=== PATIENT | male | born 1945 | race Hispanic/Latino ===

== ENCOUNTER 2018-03-15 16:53 | Inpatient (IN) | payer MEDICARE ==
[2018-03-15] MEDS ORDERED: Sodium Chloride 0.9% 1,000 ML IV STA (17:21)
--- NOTE | 2018-03-15 17:24 | ED PDOC ---
Arrival/HPI - General Chief Complaint: GI Problem Time Seen by Provider: 03/15/18 16:56 Historian: Patient - History of Present Illness Narrative History of Present Illness (Text): 03/15/18 17:21 72 y/o male, whose PMH includes asthma, hypothyroidism, diabetes, GERD, and diverticulitis, who presents to the emergency department complaining of abdominal pain that started last night. Patient reports he has been having abdominal pain episodes for the past 8 months and they recently diagnosed him with diverticulits. Patient reports his symptom is associated with nausea and vomiting. Patient denies diarrhea, chest pain, shortness of breath, fever, or other complaints. Time/Duration: 24 hours Symptom Onset: Sudden Symptom Course: Unchanged Past Medical History - Provider Review Nursing Documentation Reviewed: Yes - Infectious Disease Hx of Infectious Diseases: None - Pulmonary Hx Asthma: Yes - Endocrine/Metabolic Hx Diabetes Mellitus Type 2: Yes Hx Hypothyroidism: Yes - Gastrointestinal Hx Diverticulitis: Yes Hx Gastroesophageal Reflux: Yes - Genitourinary/Gynecological Hx Prostate Cancer: Yes Hx Prostate Problems: Yes - Psychiatric Hx Substance Use: No - Surgical History Other/Comment: intestinal sx (removed 10 inches). abdominal sx. bowel resection - Anesthesia Hx Anesthesia: Yes Hx Anesthesia Reactions: No Hx Malignant Hyperthermia: No Family/Social History - Physician Review Nursing Documentation Reviewed: Yes Family/Social History: Unknown Family HX Smoking Status: Never Smoked Hx Alcohol Use: No Hx Substance Use: No Allergies/Home Meds Allergies/Adverse Reactions: Allergies Sulfa (Sulfonamide Antibiotics) Allergy (Verified 03/15/18 17:04) RASH Home Medications: Home Meds Medication Instructions Recorded Confirmed Albuterol HFA [Ventolin HFA 90 2 puff IH QID PRN 03/15/18 03/15/18 mcg/actuation (8 g)] Celecoxib [Celebrex] 1 cap PO DAILY 03/15/18 03/15/18 DULoxetine [Cymbalta] 1 tab PO DAILY 03/15/18 03/15/18 Finasteride [Proscar] 1 tab PO DAILY 03/15/18 03/15/18 Gabapentin [Neurontin] 3 cap PO BID 03/15/18 03/15/18 Glimepiride [amaRYL] 1 tab PO DAILY 03/15/18 03/15/18 Hyoscyamine Sulfate [Symax] 1 tab SL Q4H PRN 03/15/18 03/15/18 Levothyroxine [Synthroid] 1 tab PO DAILY 03/15/18 03/15/18 Montelukast [Singulair] 1 tab PO DAILY 03/15/18 03/15/18 Pantoprazole [Protonix EC Tab] 1 tab PO DAILY 03/15/18 03/15/18 Pregabalin [Lyrica] 1 cap PO BID 03/15/18 03/15/18 Quinapril HCl [Quinapril HCl] 1 tab PO HS 03/15/18 03/15/18 SITagliptin [Januvia] 1 tab PO DAILY 03/15/18 03/15/18 traZODone [Desyrel] 1 tab PO DAILY 03/15/18 03/15/18 Review of Systems - Review of Systems Constitutional: absent: Fevers Respiratory: absent: SOB Cardiovascular: absent: Chest Pain Gastrointestinal: Abdominal Pain, Nausea, Vomiting. absent: Constipation, Diarrhea Genitourinary Male: absent: Dysuria Musculoskeletal: absent: Back Pain Neurological: absent: Headache, Dizziness Endocrine: absent: Diaphoresis Physical Exam Vital Signs Reviewed: Yes Vital Signs Temp Pulse Resp BP Pulse Ox 03/15/18 20:10 68 18 117/70 100 03/15/18 17:04 97.9 F 69 18 179/94 H 100 03/15/18 17:02 97.9 F 69 18 179/94 H 100 Temperature: Afebrile Blood Pressure: Hypertensive Pulse: Regular Respiratory Rate: Normal Appearance: Positive for: Well-Appearing, Non-Toxic, Comfortable Pain Distress: None Mental Status: Positive for: Alert and Oriented X 3 - Systems Exam Head: Present: Atraumatic, Normocephalic Pupils: Present: PERRL Extroacular Muscles: Present: EOMI Conjunctiva: Present: Normal Respiratory/Chest: Present: Clear to Auscultation, Good Air Exchange. No: Respiratory Distress, Accessory Muscle Use, Wheezes, Decreased Breath Sounds, Rales, Retracting, Rhonchi Cardiovascular: Present: Regular Rate and Rhythm, Normal S1, S2. No: Murmurs Abdomen: Present: Tenderness (non-focal), Normal Bowel Sounds. No: Distention, Peritoneal Signs, Rebound, Guarding Neurological: Present: GCS=15, CN II-XII Intact, Speech Normal Skin: Present: Warm, Dry, Normal Color. No: Rashes Psychiatric: Present: Alert, Oriented x 3, Normal Insight, Normal Concentration Medical Decision Making ED Course and Treatment: 03/15/18 17:25 Impression: 72 y/o male with non-focal tenderness complaining of abdominal pain associated with nausea and vomiting. Plan: -- EKG -- CT abdomen and pelvis -- Labs -- Urinalysis -- Zofran and Sodium Chloride -- Reassess and disposition Prior Visits: Notes and results from previous visits were reviewed. Progress Notes: 03/15/18 19:48 EKG: Ordered, reviewed, and independently interpreted the EKG. Rate : 73 BPM Rhythm : NSR Interpretation : No ST-segment elevations or depressions, no T-wave inversions, normal intervals. Comparison : No previous EKG for comparison. 03/15/18 20:22 CT abdomen and pelvis: FINDINGS: Lung bases: Unremarkable. No mass. No consolidation. Mediastinum: Small hiatal hernia. ABDOMEN: Liver: Slightly heterogenous. Gallbladder and bile ducts: Pneumobilia. Status post cholecystectomy. No ductal dilation. Pancreas: The distal pancreatic duct is questionably slightly dilated. Pancreas evaluation is limited. Spleen: Unremarkable. No splenomegaly. Adrenals: Unremarkable. No mass. Kidneys and ureters: Unremarkable. No solid mass. No hydronephrosis. Stomach and bowel: Extensive diverticulosis noted. There is significant wall thickening noted involving the transverse colon, the findings may represent colitis due to infectious versus inflammatory versus ischemic colitis Lactic acid correlation is advised. Followup is advised to evaluate underlying wall. There is infiltration of fat noted in the mesentery in the right mid abdomen. There are several air locules noted , it is difficult to evaluate due to extensive diverticulosis. Extraluminal air locules cannot be excluded on this examination. There are dilated small bowel loops noted ,its dilated up to 5 cm in the left side of the upper to mid abdomen and there are cluster of bowel loops noted with question of swirling of mesentery. Possible closed-loop obstruction is not excluded and clinical correlation and surgical consult is advised. There is linear lucency noted within the small bowel wall on image 47 series 2 , ? within the bowel versus pneumatosis is not excluded. There is infiltration of fat in the mesentery. Minimal interloop fluid is noted. Possible ischemia should be excluded. Lactic acid correlation and surgical consult is recommended. PELVIS: Appendix: No findings to suggest acute appendicitis. Bladder: Unremarkable. No mass. Reproductive: Unremarkable as visualized. ABDOMEN and PELVIS: Intraperitoneal space: See above. Bones/joints: Slight central wedging of the L2 vertebral body. No dislocation. Soft tissues: Small fat containing hernia ventral hernia. Vasculature: Significant atherosclerotic changes of the aorta. Atherosclerotic changes of the aorta. No abdominal aortic aneurysm. Lymph nodes: There are several mesenteric lymph nodes noted. IMPRESSION: Extensive diverticulosis noted. There is significant wall thickening noted involving the transverse colon, the findings may represent colitis due to infectious versus inflammatory versus ischemic colitis. Lactic acid correlation is advised. Followup is advised to evaluate underlying wall. There is infiltration of fat noted in the mesentery in the right mid abdomen. There are several air locules noted it is difficult to evaluate due to extensive diverticulosis. Extraluminal air locules cannot be excluded on this examination. There are dilated small bowel loops noted ,its dilated up to 5 cm in the left side of the upper to mid abdomen and there are cluster of bowel loops noted with question of swirling of mesentery. Possible closed-loop obstruction is not excluded and clinical correlation and surgical consult is advised. There is linear lucency noted within the small bowel wall on image 47 series 2 , within the bowel versus pneumatosis is not excluded. There is infiltration of fat in the mesentery. Minimal interloop fluid is noted. Possible ischemia should be excluded. Lactic acid correlation and surgical consult is recommended. - Lab Interpretations Lab Results: 03/15/18 17:42 03/15/18 17:42 Lab Results 03/15/18 17:42: Sodium 143, Potassium 4.1, Chloride 104, Carbon Dioxide 24, Anion Gap 19, BUN 23 H, Creatinine 1.1, Est GFR ( Amer) > 60, Est GFR ( Non-Af Amer) > 60, Random Glucose 124 H, Calcium 10.0, Magnesium 1.9, Total Bilirubin 0.8, AST 25, ALT 21, Alkaline Phosphatase 72, Lactate Dehydrogenase 395, Total Creatine Kinase 75, Troponin I 0.03, Total Protein 7.8, Albumin 4.6, Globulin 3.2, Albumin/Globulin Ratio 1.4, Lipase 75 03/15/18 17:42: PT 11.4, INR 1.00, APTT 27.7 08/19/18 17:42: WBC 5.3, RBC 4.61, Hgb 14.6, Hct 42.3, MCV 91.8, MCH 31.7, MCHC 34.5, RDW 14.0, Plt Count 164, MPV 10.6, Gran % 82.6 H, Lymph % (Auto) 10.9 L, Hooker % (Auto) 5.3, Eos % (Auto) 0.6 L, Baso % (Auto) 0.6, Gran # 4.39, Lymph # ( Auto) 0.6 L, Hooker # (Auto) 0.3, Eos # (Auto) 0.0, Baso # (Auto) 0.03 I have reviewed the lab results: Yes - RAD Interpretation Radiology Orders: 03/15/18 18:04 ABD & PELVIS IV CONTRAST ONLY [CT] Stat 03/15/18 19:27 CXR [CHEST PORTABLE] [RAD] Stat [employer] Supervisor: Radiologist - EKG Interpretation Interpreted by ED Physician: Yes Type: 12 lead EKG - Medication Orders Current Medication Orders: Discontinued Medications Sodium Chloride (Sodium Chloride 0.9%) 1,000 mls @ 999 mls/hr IV .Q1H1M STA Stop: 03/15/18 18:21 Last Admin: 03/15/18 18:30 Dose: 999 mls/hr eMAR Start Stop Document 03/15/18 18:30 GMD (Rec: 03/15/18 18:31 GMD [id number]) Intravenous Solution Start Date 03/15/18 Start Time 18:31 End Date 03/15/18 End time 19:32 Total Infusion Time 61 Ketorolac Tromethamine (Toradol) 30 mg IVP STAT STA Stop: 03/15/18 17:54 Last Admin: 03/15/18 18:57 Dose: 30 mg MAR Pain Assessment Document 03/15/18 18:57 GMD (Rec: 03/15/18 18:57 GMD [id number]) Pain Reassessment Is this a pain reassessment? No IVP Administration Document 03/15/18 18:57 GMD (Rec: 03/15/18 18:57 GMD [id number]) Charges for Administration # of IVP Administrations 1 Ondansetron HCl (Zofran Inj) 4 mg IVP STAT STA Stop: 03/15/18 17:22 Last Admin: 03/15/18 18:31 Dose: Not Given Non-Admin Reason: Patient Refused - Scribe Statement The provider has reviewed the documentation as recorded by the Joseline Leal Provider Joseline Attestation: All medical record entries made by the Scribe were at my direction and personally dictated by me. I have reviewed the chart and agree that the record accurately reflects my personal performance of the history, physical exam, medical decision making, and the department course for this patient. I have also personally directed, reviewed, and agree with the discharge instructions and disposition. Disposition/Present on Arrival - Present on Arrival History of DVT/PE: No History of Uncontrolled Diabetes: No Urinary Catheter: No History of Decub. Ulcer: No History Surgical Site Infection Following: None - Disposition Forms: [facility] (Romanian)
[2018-03-15 17:48] LABS: BASO # 0.03 K/mm3 (0.0-2.0); BASO % 0.6 % (0.0-3.0); EOS % 0.6 % (1.5-5.0); GRAN # 4.39 (1.4-6.5); GRAN % 82.6 % (50.0-68.0); HEMOGLOBIN 14.6 g/dL (14.0-18.0); LYMPH # 0.6 (1.2-3.4); LYMPH % 10.9 % (22.0-35.0); MEAN CELL VOLUME 91.8 fl (80.0-105.0); MEAN CORPUSCULAR HEMOGLOBIN 31.7 pg (25.0-35.0); MEAN CORPUSCULAR HGB CONC 34.5 g/dl (31.0-37.0); MEAN PLATELET VOLUME 10.6 fl (7.0-11.0); MONO # 0.3 (0.1-0.6); MONO % 5.3 % (1.0-6.0); RBC 4.61 10^6/uL (3.5-6.1); WHITE BLOOD COUNT 5.3 10^3/ul (4.5-11.0)
[2018-03-15 17:57] LABS: PARTIAL THROMBOPLASTIN TIME 27.7 Seconds (25.1-36.5); PROTHROMBIN TIME 11.4 SECONDS (9.4-12.5)
[2018-03-15 18:03] LABS: ALB/GLOB RATIO 1.4 (1.1-1.8); ALBUMIN 4.6 g/dL (3.0-4.8); ALT/SGPT 21 U/L (7-56); AST/SGOT 25 U/L (17-59); BLOOD UREA NITROGEN 23 mg/dL (7-21); GFR AFRICAN-AMERICAN > 60; GFR NON-AFRICAN AMERICAN > 60; LIPASE 75 U/L (23-300)
[2018-03-15 18:14] LABS: TROPONIN I 0.03 ng/mL
[2018-03-15] MEDS ORDERED: Iohexol 350 MG/100 ML VIAL ONE (19:03)
[2018-03-15] MEDS ORDERED: Piperacillin/Tazobact 3.375 gm 100 ML IVPB STA (20:25)
--- NOTE | 2018-03-15 20:32 | CP.PCM.CON ---
History of Present Illness - History of Present Illness History of Present Illness: General Surgery Consult Note for Dr. Grissom Reason for consult: abdominal pain, nausea/vomiting, suspected SBO 72M with PMH that includes s/p numerous abdominal surgeries, recurrent SBO, hypothyroidism, DM, GERD, and diverticulitis presents to [facility] [place] for abdominal pain , nausea/vomiting. Patient was seen and evaluated in the ED. Patient states that he developed abdominal pain . Patient was at home in [place] at that time. The pain persisted until today when patient and his arrived to [place] for the cruise. Patient was eating around 2 pm when pain worsened and he developed nausea/vomiting. Patient subsequently had 5-6 episodes of non- bloody, non-bilious emesis. Patient rates pain as moderate. He describes pain as constant and sharp located in LLQ and RLQ without radiation. He states nothing aggravates or alleviates symptoms. He denies recent illness or sick contacts. Patient had normal BM ealier today but has not passed gas since. Denies fever/chills, chest pain, SOB, palpitations, diarrhea, constipation, incontinence, urinary symptoms. PMH: Asthma, hypothyroidism, DM, GERD, diverticulosis, diverticulitis, recurrent SBO Meds: As per EMR Allergy: Sulfa drugs PSH: bilateral inguinal hernia repair, ex-lap x 3, bowel resection, Lysis of adhesions, open cholecystectomy FH: non-contributory Social: Review of Systems - Review of Systems All systems: reviewed and no additional remarkable complaints except (as per hPI ) Past Patient History - Infectious Disease Hx of Infectious Diseases: None - Past Social History Smoking Status: Never Smoked - PULMONARY Hx Asthma: Yes - ENDOCRINE/METABOLIC Hx Diabetes Mellitus Type 2: Yes Hx Hypothyroidism: Yes - GASTROINTESTINAL Hx Diverticulitis: Yes Hx Gastroesophageal Reflux: Yes - GENITOURINARY/GYNECOLOGICAL Hx Prostate Cancer: Yes Hx Prostate Problems: Yes - PSYCHIATRIC Hx Substance Use: No - SURGICAL HISTORY Other/Comment: intestinal sx (removed 10 inches). abdominal sx. bowel resection - ANESTHESIA Hx Anesthesia: Yes Hx Anesthesia Reactions: No Hx Malignant Hyperthermia: No Meds Allergies/Adverse Reactions: Allergies Allergy/AdvReac Type Severity Reaction Status Date / Time Sulfa (Sulfonamide Allergy RASH Verified 03/15/18 17:04 Antibiotics) - Medications Medications: Current Medications Piperacillin Sod/Tazobactam Sod (Zosyn 3.375 In Ns 100ml) 100 mls @ 200 mls/hr IVPB STAT STA PRN Reason: Protocol Stop: 03/15/18 20:54 Physical Exam - Constitutional Appears: No Acute Distress - Head Exam Head Exam: ATRAUMATIC, NORMOCEPHALIC - Eye Exam Eye Exam: EOMI, Normal appearance Pupil Exam: PERRL - ENT Exam ENT Exam: Mucous Membranes Moist - Respiratory Exam Respiratory Exam: NORMAL BREATHING PATTERN - Cardiovascular Exam Cardiovascular Exam: REGULAR RHYTHM - GI/Abdominal Exam GI & Abdominal Exam: Hernia (incisional), Hyperactive Bowel Sounds, Soft, Tenderness (LLQ,RLQ). absent: Distended, Firm, Guarding, Rebound, Rigid Additional comments: midline scar from ex-laps horizontal scar in RUQ from cholecystectomy - Rectal Exam Rectal Exam: Deferred - Extremities Exam Extremities exam: Positive for: normal capillary refill, pedal pulses present - Back Exam Back exam: absent: CVA tenderness (L), CVA tenderness (R) - Neurological Exam Neurological exam: Alert, CN II-XII Intact, Oriented x3 - Psychiatric Exam Psychiatric exam: Normal Affect, Normal Mood - Skin Skin Exam: Dry, Intact, Normal Color, Warm Results - Vital Signs Recent Vital Signs: Last Vital Signs Temp 97.9 F 03/15/18 17:04 Pulse 68 03/15/18 20:10 Resp 18 03/15/18 20:10 BP 117/70 03/15/18 20:10 Pulse Ox 100 03/15/18 20:10 - Labs Result Diagrams: 03/15/18 17:42 03/15/18 17:42 Labs: Laboratory Results - last 24 hr 03/15/18 03/15/18 03/15/18 17:42 17:42 17:42 WBC 5.3 RBC 4.61 Hgb 14.6 Hct 42.3 MCV 91.8 MCH 31.7 MCHC 34.5 RDW 14.0 Plt Count 164 MPV 10.6 Gran % 82.6 H Lymph % (Auto) 10.9 L Delta % (Auto) 5.3 Eos % (Auto) 0.6 L Baso % (Auto) 0.6 Gran # 4.39 Lymph # (Auto) 0.6 L Delta # (Auto) 0.3 Eos # (Auto) 0.0 Baso # (Auto) 0.03 PT 11.4 INR 1.00 APTT 27.7 Sodium 143 Potassium 4.1 Chloride 104 Carbon Dioxide 24 Anion Gap 19 BUN 23 H Creatinine 1.1 Est GFR ( Amer) > 60 Est GFR (Non-Af Amer) > 60 Random Glucose 124 H Calcium 10.0 Magnesium 1.9 Total Bilirubin 0.8 AST 25 ALT 21 Alkaline Phosphatase 72 Lactate Dehydrogenase 395 Total Creatine Kinase 75 Troponin I 0.03 Total Protein 7.8 Albumin 4.6 Globulin 3.2 Albumin/Globulin Ratio 1.4 Lipase 75 Assessment & Plan - Assessment and Plan (Free Text) Assessment: 72M who presents with abdominal pain, nausea/vomiting and suspected SBO Plan: -NPO -IV fluids -IV antibiotics -Analgesics/Anti-emetics PRN -Strict I's & O's -Serial abdominal exam -Monitor for bowel function -f/u AM labs -Repeat CT abd/pelvis with oral contrast in AM -Further recommendations as per Dr. Jaciel Shaw PGY2
[2018-03-15 21:14] LABS: VENOUS BLOOD GAS BASE EXCESS -0.2 mmol/L (0.0-2.0); VENOUS BLOOD GAS PO2 47 mm/Hg (30-55); VENOUS BLOOD PH 7.39 (7.32-7.43)
[2018-03-15] MEDS ORDERED: HYDROmorphone 0.5 mg/0.5 ml ISec IVP PRN (21:42)
--- NOTE | 2018-03-15 21:42 | CP.PCM.CON ---
<Socrates Diaz - Last Filed: 03/15/18 22:05> History of Present Illness - History of Present Illness History of Present Illness: Socrates Diaz DO, PGY-2: ICU Consult Note for Dr. Thomas 72 year old male with past medical history of multiple abdominal surgeries, recurrent SBO, hypothyroidism, DM II, GERD, and diverticulitis who presents to [facility] [place] with 5 days of worsening, abdominal pain, distension, and vomiting. He has travelled from [place] by plane yesterday and was about to go on a cruise trip today; however, given his symptoms persisted he decided to stay on land. He is accompanied by his and their luggage. He reports that of this week he developed some abdominal pain, nausea, vomiting that worsened after a turbulent plane ride. He reports drinking Ensure clear on Friday which helped , but on Friday after he had scrambled eggs in his hotel room his abdominal pain returned, as did his nausea and vomiting. He reports having to take the another flight today in which his symptoms also worsened from airfare and by the time he was on the cruise ship he simply could not tolerate his condition and therefore prompted him to come to the ED here in [facility] [place] [facility] for further evaluation. He reports close follow-up with a ocean freight manager in [place] who recommends that anytime he has such symptoms he take Ensure clear or remain NPO until his symptoms resolve. He has had similar episodes in the past of abdominal pain, bloating, gase sensation, that have all resolved with observing a liquid diet and humming at a certain frequency. His past medical history is notable for multiple abdominal surgeries following a complication that was sustained during a left inguinal hernia repair in which bowel was lacerated. The ICU was consulted given CT findings that were concerning for ischemic colitis or closed-loop bowel. He denies fever, chills, but admits to an inability to pass flatus in the pst 12 hours. He appears clinically stable, his abdomen is not tender,and he has passed a bowel movement in the last 24 hours, and his labs are normal. We recommend serial abdominal exams and keeping the patient NPO. He is likely suffering from a partial SBO that will likely resolve with conservative management. His home medications will need to be restarted by the primary team. Surgery is also following. No ICU admission warranted at this time. PMH: Asthma, hypothyroidism, DM, GERD, diverticulosis, diverticulitis, recurrent SBO Meds: As per EMR Allergy: Sulfa drugs PSH: bilateral inguinal hernia repair, ex-lap x 3, bowel resection, Lysis of adhesions, open cholecystectomy FH: Father of [place] at age 52 Social: Retired, denies alcohol, tobacco, or illicit drug use Review of Systems - Review of Systems All systems: reviewed and no additional remarkable complaints except (as per HPI ) Past Patient History - Infectious Disease Hx of Infectious Diseases: None - Past Social History Smoking Status: Never Smoked - PULMONARY Hx Asthma: Yes - ENDOCRINE/METABOLIC Hx Diabetes Mellitus Type 2: Yes Hx Hypothyroidism: Yes - GASTROINTESTINAL Hx Diverticulitis: Yes Hx Gastroesophageal Reflux: Yes - GENITOURINARY/GYNECOLOGICAL Hx Prostate Cancer: Yes Hx Prostate Problems: Yes - PSYCHIATRIC Hx Substance Use: No - SURGICAL HISTORY Other/Comment: intestinal sx (removed 10 inches). abdominal sx. bowel resection - ANESTHESIA Hx Anesthesia: Yes Hx Anesthesia Reactions: No Hx Malignant Hyperthermia: No Meds Allergies/Adverse Reactions: Allergies Allergy/AdvReac Type Severity Reaction Status Date / Time Sulfa (Sulfonamide Allergy RASH Verified 03/15/18 17:04 Antibiotics) morphine AdvReac Confusion Verified 03/15/18 23:05 Physical Exam - Constitutional Appears: Well, Non-toxic - Head Exam Head Exam: ATRAUMATIC, NORMOCEPHALIC - Eye Exam Eye Exam: EOMI, Normal appearance - ENT Exam ENT Exam: Mucous Membranes Moist, Normal Oropharynx - Neck Exam Neck exam: Positive for: Normal Inspection - Respiratory Exam Respiratory Exam: Clear to Auscultation Bilateral, NORMAL BREATHING PATTERN. absent: Accessory Muscle Use - Cardiovascular Exam Cardiovascular Exam: RRR, +S1, +S2 - GI/Abdominal Exam GI & Abdominal Exam: Hypoactive Bowel Sounds, Soft. absent: Distended, Guarding , Rebound Additional comments: large midline incision scar noted and cholecystecomy scar noted - Extremities Exam Extremities exam: Positive for: normal inspection. Negative for: calf tenderness - Back Exam Back exam: NORMAL INSPECTION. absent: CVA tenderness (L), CVA tenderness (R) - Neurological Exam Neurological exam: Alert, CN II-XII Intact, Oriented x3 - Psychiatric Exam Psychiatric exam: Normal Affect, Normal Mood - Skin Skin Exam: Dry, Intact, Normal Color, Warm Results - Vital Signs Recent Vital Signs: Last Vital Signs Temp 97.9 F 03/15/18 17:04 Pulse 68 03/15/18 20:10 Resp 18 03/15/18 20:10 BP 117/70 03/15/18 20:10 Pulse Ox 100 03/15/18 20:10 - Labs Result Diagrams: 03/15/18 17:42 03/15/18 17:42 Labs: Laboratory Results - last 24 hr 03/15/18 21:02 pO2 47 VBG pH 7.39 VBG pCO2 41.0 VBG HCO3 24.8 VBG Total CO2 26.1 VBG O2 Sat (Calc) 83.7 H VBG Base Excess -0.2 L VBG Potassium 4.2 Sodium 140.0 Chloride 109.0 H Glucose 105 Lactate 1.0 FiO2 21.0 Venous Blood Potassium 4.2 Assessment & Plan - Assessment and Plan (Free Text) Assessment: 72 year old male with a past medical history of multiple abdominal surgeries following a complication after a left inguinal hernia repair that involved lacerating bowel. He presents with 5 days of intermittent abdominal pain, some distension, that has resolved since his short stay in the ED. CT of abdomen and pelvis showed findings, likely chronic in nature, that included possible ischemic colitis, though labs and clinical exam did not correlate with this. Also, air in the biliary tree was mentioned in the CT and is likely secondary to post cholecystecomy. The patient will be kept NPO, placed on broad spectrum antibiotics, and further evaluated by the other consultants. At this time, he does not warrant ICU admission given his abdominal exam is benign and his symptoms have nearly resolved. If at any point his symptoms return or worsen or his clinical status deteriorates, which is unlikely, but possible nonetheless, please re-consult the ICU. Surgery, Infectious disease, and GI have also been consulted. Primary team should restart his home medications, as appropriate. This case was reviewed and discussed at length with the attending physician, Dr. Gianfranco Thomas - Date & Time Date: 03/15/18 Time: 21:52 <Gianfranco Thomas P - Last Filed: 03/16/18 03:16> Meds - Medications Medications: Current Medications Albuterol Sulfate (Albuterol 0.083% Inhal Susanna (2.5 Mg/3 Ml) Ud) 2.5 mg IH [id number] PRN PRN Reason: Wheezing Duloxetine HCl (Cymbalta) 30 mg PO BID [facility] Finasteride (Proscar) 5 mg PO DAILY [facility] Gabapentin (Neurontin) 900 mg PO BID JM PRN Reason: Protocol Hydromorphone HCl (Dilaudid) 0.5 mg IVP Q4H PRN PRN Reason: Pain, severe (8-10) Lactated Ringer's (Lactated Ringer's) 1,000 mls @ 115 mls/hr IV .Q8H42M [facility] Last Admin: 03/15/18 22:40 Dose: 115 mls/hr Piperacillin Sod/Tazobactam Sod (Zosyn 3.375 In Ns 100ml) 100 mls @ 200 mls/hr IVPB Q6 JM PRN Reason: Protocol Stop: 03/24/18 00:01 Last Admin: 03/16/18 00:14 Dose: 200 mls/hr Latanoprost (Xalatan Opht) 0 ml OS HS [facility] Last Admin: 03/16/18 00:15 Dose: 2.5 ml Levothyroxine Sodium (Synthroid) 100 mcg PO 0600 [facility] Lisinopril (Zestril) 10 mg PO HS [facility] Montelukast Sodium (Singulair) 10 mg PO HS [facility] Last Admin: 03/16/18 00:11 Dose: 10 mg Ondansetron HCl (Zofran Inj) 4 mg IVP Q6H PRN PRN Reason: Nausea/Vomiting Pantoprazole Sodium (Protonix Inj) 40 mg IVP DAILY [facility] Pregabalin (Lyrica) 100 mg PO BID [facility] Last Admin: 03/16/18 00:11 Dose: 100 mg Trazodone HCl (Desyrel) 25 mg PO HS [facility] Results - Vital Signs Recent Vital Signs: Last Vital Signs Temp 98 F 03/16/18 00:01 Pulse 63 03/16/18 02:00 Resp 20 03/16/18 00:01 BP 155/74 H 03/16/18 00:01 Pulse Ox 99 03/16/18 00:01 - Labs Result Diagrams: 03/15/18 17:42 03/15/18 17:42 Labs: Laboratory Results - last 24 hr 03/15/18 03/15/18 21:02 23:00 pO2 47 VBG pH 7.39 VBG pCO2 41.0 VBG HCO3 24.8 VBG Total CO2 26.1 VBG O2 Sat (Calc) 83.7 H VBG Base Excess -0.2 L VBG Potassium 4.2 Sodium 140.0 Chloride 109.0 H Glucose 105 Lactate 1.0 FiO2 21.0 Venous Blood Potassium 4.2 Urine Color Light yellow Urine Appearance Clear Urine pH 7.0 Ur Specific [place] <= 1.005 Urine Protein Negative Urine Glucose (UA) Negative Urine Ketones Trace H Urine Blood Negative Urine Nitrate Negative Urine Bilirubin Negative Urine Urobilinogen 1.0 H Ur Leukocyte Esterase Negative Attending/Attestation - Attestation I have personally seen and examined this patient.: Yes I have fully participated in the care of the patient.: Yes I have reviewed all pertinent clinical information: Yes Notes (Text): 03/16/18 03:09 72 M with h/o DM, HTN, multiple prior abd surgeries, including cholecystectomy, b/l inguinal hernia repair, h/o colonic injury some partial resection, h/o prior adhesions s/p adhesions release 1.5 yrs back, has c/o recurrent episodes of abd pain which last for few hrs and then improve, this time pain recurred 3 days consequently and severity of more on last day, related with intake of food. CT finding of areas of small bowel dilatation, ? pneumatosis in areas of small intestinal dilatation, diverticulosis, possibility of areas of extrluminal air vs diverticulosis. Upon clinical exam patient was not tender and pain actually had resolved, no acidosis, including lactic acidosis, suggesting finding in relation to adhesions rather bowel perforation or ischemia. Patient was started on empiric abx, npo and surgery was following up, patient exam was not toxic and could be observed on the medical floor.
[2018-03-15] MEDS: Lactated Ringer's 1,000 ML IV SCH (22:40)
[2018-03-15 23:09] VITALS: BMI 24.5
[2018-03-15 23:13] LABS: URINE BILIRUBIN NEGATIVE (NEGATIVE); URINE BLOOD NEGATIVE (NEGATIVE); URINE GLUCOSE (UA) NEGATIVE (NEGATIVE); URINE LEUKOCYTE ESTERASE NEGATIVE Leu/uL (NEGATIVE); URINE PROTEIN NEGATIVE mg/dL (<30 mg/dL)
[2018-03-15 23:14] LABS: URINE APPEARANCE CLEAR (CLEAR); URINE COLOR LIGHT YELLOW (YELLOW)
[2018-03-16] MEDS: Piperacillin/Tazobact 3.375 gm 100 ML IVPB SCH ×5 (00:14→23:13)
[2018-03-16] MEDS ORDERED: Albuterol 0.083% Inhal Sol (2.5 mg/3 mL) UD IH PRN (00:14)
[2018-03-16] MEDS: Latanoprost 2.5 ml Opht Soln OS SCH ×2 (00:15→21:32)
[2018-03-16] MEDS ORDERED: Piperacillin/Tazobact 3.375 gm 100 ML IVPB SCH (03:00)
[2018-03-16] MEDS: Levothyroxine 100 MCG TAB PO SCH (05:20)
[2018-03-16 06:23] LABS: BASO # 0.01 K/mm3 (0.0-2.0); BASO % 0.2 % (0.0-3.0); EOS # 0.1 (0.0-0.7); EOS % 2.1 % (1.5-5.0); GRAN # 3.11 (1.4-6.5); GRAN % 65.6 % (50.0-68.0); HEMOGLOBIN 12.1 g/dL (14.0-18.0); LYMPH # 1.1 (1.2-3.4); LYMPH % 23.2 % (22.0-35.0); MEAN CELL VOLUME 92.9 fl (80.0-105.0); MEAN CORPUSCULAR HEMOGLOBIN 31.9 pg (25.0-35.0); MEAN CORPUSCULAR HGB CONC 34.4 g/dl (31.0-37.0); MEAN PLATELET VOLUME 10.8 fl (7.0-11.0); MONO # 0.4 (0.1-0.6); MONO % 8.9 % (1.0-6.0); RBC 3.79 10^6/uL (3.5-6.1); RED CELL DISTRIBUTION WIDTH 14.1 % (11.5-14.5); WHITE BLOOD COUNT 4.7 10^3/ul (4.5-11.0)
[2018-03-16 06:41] LABS: ALB/GLOB RATIO 1.2 (1.1-1.8); ALBUMIN 2.9 g/dL (3.0-4.8); ALT/SGPT 26 U/L (7-56); AST/SGOT 17 U/L (17-59); BLOOD UREA NITROGEN 23 mg/dL (7-21); CALCIUM 8.5 mg/dL (8.4-10.5); GFR AFRICAN-AMERICAN > 60; GFR NON-AFRICAN AMERICAN > 60
[2018-03-16] MEDS ORDERED: Barium Sulfate Susp 2.1% w/v, 2.0% w/w 450 mL Bottle PO ONE (06:41)
[2018-03-16 06:47] LABS: INR 1.03; PARTIAL THROMBOPLASTIN TIME 28.2 Seconds (25.1-36.5); PROTHROMBIN TIME 11.8 SECONDS (9.4-12.5)
--- NOTE | 2018-03-16 07:30 | CP.PCM.PN ---
Subjective - Date & Time of Evaluation Date of Evaluation: 03/16/18 Time of Evaluation: 06:50 - Subjective Subjective: Pt was seen and examined at beside this AM, observed drinking PO contrast. No acute events reported overnight. Abdominal pain is improved, pt is passing flatus. No fevers/chills, chest pain, palpitations, SOB, diarrhea, constipation , or urinary symptoms. Objective - Vital Signs/Intake and Output Vital Signs (last 24 hours): Temp Pulse Resp BP Pulse Ox 97.9 F 65 20 126/82 98 03/16/18 06:00 03/16/18 06:00 03/16/18 06:00 03/16/18 06:00 03/16/18 06:00 Intake and Output: 03/16/18 03/16/18 06:59 18:59 Intake Total 1465 Output Total 300 Balance 1165 - Medications Medications: Current Medications Albuterol Sulfate (Albuterol 0.083% Inhal Susanna (2.5 Mg/3 Ml) Ud) 2.5 mg IH [id number] PRN PRN Reason: Wheezing Duloxetine HCl (Cymbalta) 30 mg PO BID [facility] Finasteride (Proscar) 5 mg PO DAILY [facility] Gabapentin (Neurontin) 900 mg PO BID [facility] PRN Reason: Protocol Hydromorphone HCl (Dilaudid) 0.5 mg IVP Q4H PRN PRN Reason: Pain, severe (8-10) Lactated Ringer's (Lactated Ringer's) 1,000 mls @ 115 mls/hr IV .Q8H42M [facility] Last Admin: 03/15/18 22:40 Dose: 115 mls/hr Piperacillin Sod/Tazobactam Sod (Zosyn 3.375 In Ns 100ml) 100 mls @ 200 mls/hr IVPB Q6 JM PRN Reason: Protocol Stop: 03/24/18 00:01 Last Admin: 03/16/18 05:20 Dose: 200 mls/hr Latanoprost (Xalatan Opht) 0 ml OS HS [facility] Last Admin: 03/16/18 00:15 Dose: 2.5 ml Levothyroxine Sodium (Synthroid) 100 mcg PO 0600 [facility] Last Admin: 03/16/18 05:20 Dose: 100 mcg Lisinopril (Zestril) 10 mg PO [facility] Montelukast Sodium (Singulair) 10 mg PO HS [facility] Last Admin: 03/16/18 00:11 Dose: 10 mg Ondansetron HCl (Zofran Inj) 4 mg IVP Q6H PRN PRN Reason: Nausea/Vomiting Pantoprazole Sodium (Protonix Inj) 40 mg IVP DAILY [facility] Pregabalin (Lyrica) 100 mg PO BID [facility] Last Admin: 03/16/18 00:11 Dose: 100 mg Trazodone HCl (Desyrel) 25 mg PO [facility] - Labs Labs: 03/16/18 05:40 03/16/18 05:40 PT 11.8 SECONDS (9.4-12.5) 03/16/18 05:40 INR 1.03 03/16/18 05:40 APTT 28.2 Seconds (25.1-36.5) 03/16/18 05:40 - Constitutional Appears: Non-toxic, No Acute Distress - Head Exam Head Exam: ATRAUMATIC, NORMAL INSPECTION, NORMOCEPHALIC - Eye Exam Eye Exam: Normal appearance - Neck Exam Neck Exam: Normal Inspection - Respiratory Exam Respiratory Exam: NORMAL BREATHING PATTERN - Cardiovascular Exam Cardiovascular Exam: RRR, +S1, +S2 - GI/Abdominal Exam GI & Abdominal Exam: Soft, Tenderness, Hernia (incisional), Hyperactive Bowel Sounds. absent: Distended, Firm, Guarding, Rigid, Rebound Additional comments: midline scar from ex-laps horizontal scar in RUQ from cholecystectomy - Extremities Exam Extremities Exam: Normal Inspection - Back Exam Back Exam: NORMAL INSPECTION - Neurological Exam Neurological Exam: Alert, Awake, Oriented x3 - Psychiatric Exam Psychiatric exam: Normal Affect, Normal Mood - Skin Skin Exam: Dry, Intact, Normal Color, Warm Assessment and Plan - Assessment and Plan (Free Text) Assessment: 72 yo M who presents with abdominal pain, nausea/vomiting and suspected SBO Plan: -NPO, IVF -f/u CT abd/pelvis -serial abdominal exams -monitor BM -strict I/Os -further recs as per Dr. Jaciel Herr, PGY-1
[2018-03-16] MEDS: Lactated Ringer's 1,000 ML IV SCH ×2 (08:39→21:30)
--- NOTE | 2018-03-16 08:44 | RAD ---
Date of service: 03/15/2018 HISTORY: Abdominal pain COMPARISON: No prior. FINDINGS: LUNGS: The lungs are well inflated and clear. There are fibrotic changes in the right upper lobe. PLEURA: No significant pleural effusion identified, no pneumothorax apparent. CARDIOVASCULAR: Normal. OSSEOUS STRUCTURES: No significant abnormalities. VISUALIZED UPPER ABDOMEN: Normal. OTHER FINDINGS: None. IMPRESSION: No active pulmonary disease.
--- NOTE | 2018-03-16 08:50 | CP.PCM.CON ---
<Sylvia May - Last Filed: 03/16/18 08:52> History of Present Illness - History of Present Illness History of Present Illness: GI Fellow PGY5 Consult Note This is a 72yM with PMH that includes s/p numerous abdominal surgeries, recurrent SBO, hypothyroidism, DM, GERD, and diverticulitis [place] [facility] [place], nausea/vomiting for three days. Patient was eating around 2 pm when pain worsened yesterday and he developed nausea/vomiting. Patient subsequently had 5-6 episodes of non-bloody, non-bilious emesis. Patient rates pain as moderate. He describes pain as constant and sharp located in LLQ and RLQ without radiation. He states nothing aggravates or alleviates symptoms. He denies recent illness or sick contacts. Patient had a sift mushy BM earlier yesterday and notice a streak of blood which prompted him to come to the ER.He has started to pass gas this am. He reports being admitted for similar episode in July 2017 in [place] and found to have acute diverticulitis. He follows up with a GI doctor and has regular colonoscopies every 2 yrs due to severe diverticulosis and polyps. Last colonoscopy was with in the past year. He denies constipation and has a regular BM daily. Denies fever/chills, chest pain , SOB, palpitations, diarrhea, constipation, incontinence, urinary symptoms. At the time of evaluation, pt reports feeling better, passing gas with mild abdominal pain. No NGT placed by surgery and plan for repeat CT with po contrast. ROS: A 12pt ROS was negative except as above PMH: Asthma, hypothyroidism, DM, GERD, diverticulosis, diverticulitis, recurrent SBO PSH: bilateral inguinal hernia repair, ex-lap x 3, bowel resection, Lysis of adhesions, open cholecystectomy FH: No hx of colon cancer SH: Prior smoker quit 25yrs ago, drinks etoh socially, neg for illicit drug use Past Patient History - Infectious Disease Hx of Infectious Diseases: None - Past Social History Smoking Status: Never Smoked - CARDIAC Hx Cardiac Disorders: Yes Hx Hypercholesterolemia: Yes (has been off meds for 3 years) Hx Hypertension: Yes (has been off meds for 3 years) - PULMONARY Hx Asthma: Yes - NEUROLOGICAL Hx Neurological Disorder: No - HEENT Hx HEENT Problems: Yes (wears glasses) Hx Cataracts: Yes (B/T with surgery) Hx Glaucoma: Yes (Left Eye) - RENAL Hx Chronic Kidney Disease: No - ENDOCRINE/METABOLIC Hx Diabetes Mellitus Type 2: Yes Hx Hypothyroidism: Yes - HEMATOLOGICAL/ONCOLOGICAL Hx Blood Disorders: No - INTEGUMENTARY Hx Dermatological Problems: No - MUSCULOSKELETAL/RHEUMATOLOGICAL Hx Musculoskeletal Disorders: Yes Hx Falls: Yes - GASTROINTESTINAL Hx Diverticulitis: Yes Hx Gastroesophageal Reflux: Yes - GENITOURINARY/GYNECOLOGICAL Hx Prostate Cancer: Yes Hx Prostate Problems: Yes - PSYCHIATRIC Hx Substance Use: No - SURGICAL HISTORY Other/Comment: intestinal sx (removed 10 inches). abdominal sx. bowel resection - ANESTHESIA Hx Anesthesia: Yes Hx Anesthesia Reactions: No Hx Malignant Hyperthermia: No Meds Allergies/Adverse Reactions: Allergies Allergy/AdvReac Type Severity Reaction Status Date / Time Sulfa (Sulfonamide Allergy RASH Verified 03/15/18 17:04 Antibiotics) morphine AdvReac Confusion Verified 03/15/18 23:05 - Medications Medications: Current Medications Albuterol Sulfate (Albuterol 0.083% Inhal Susanna (2.5 Mg/3 Ml) Ud) 2.5 mg IH [id number] PRN PRN Reason: Wheezing Duloxetine HCl (Cymbalta) 30 mg PO BID JM Finasteride (Proscar) 5 mg PO DAILY JM Gabapentin (Neurontin) 900 mg PO BID JM PRN Reason: Protocol Hydromorphone HCl (Dilaudid) 0.5 mg IVP Q4H PRN PRN Reason: Pain, severe (8-10) Lactated Ringer's (Lactated Ringer's) 1,000 mls @ 115 mls/hr IV .Q8H42M [facility] Last Admin: 03/16/18 08:39 Dose: 115 mls/hr Piperacillin Sod/Tazobactam Sod (Zosyn 3.375 In Ns 100ml) 100 mls @ 200 mls/hr IVPB Q6 JM PRN Reason: Protocol Stop: 03/24/18 00:01 Last Admin: 03/16/18 05:20 Dose: 200 mls/hr Latanoprost (Xalatan Opht) 0 ml OS HS [facility] Last Admin: 03/16/18 00:15 Dose: 2.5 ml Levothyroxine Sodium (Synthroid) 100 mcg PO 0600 [facility] Last Admin: 03/16/18 05:20 Dose: 100 mcg Lisinopril (Zestril) 10 mg PO HS [facility] Montelukast Sodium (Singulair) 10 mg PO HS [facility] Last Admin: 03/16/18 00:11 Dose: 10 mg Ondansetron HCl (Zofran Inj) 4 mg IVP Q6H PRN PRN Reason: Nausea/Vomiting Pantoprazole Sodium (Protonix Inj) 40 mg IVP DAILY [facility] Pregabalin (Lyrica) 100 mg PO BID [facility] Last Admin: 03/16/18 00:11 Dose: 100 mg Trazodone HCl (Desyrel) 25 mg PO [facility] Physical Exam - Constitutional Appears: Non-toxic, No Acute Distress - Head Exam Head Exam: ATRAUMATIC, NORMAL INSPECTION, NORMOCEPHALIC - Eye Exam Eye Exam: EOMI, Normal appearance, PERRL Pupil Exam: PERRL - ENT Exam ENT Exam: Mucous Membranes Moist - Neck Exam Neck exam: Positive for: Full Rom, Normal Inspection - Respiratory Exam Respiratory Exam: Clear to Auscultation Bilateral, NORMAL BREATHING PATTERN - Cardiovascular Exam Cardiovascular Exam: REGULAR RHYTHM, RRR, +S1, +S2 - GI/Abdominal Exam GI & Abdominal Exam: Normal Bowel Sounds, Soft, Tenderness. absent: Distended, Firm, Guarding, Hernia, Organomegaly Additional comments: Surgical scars - Rectal Exam Rectal Exam: Deferred - Extremities Exam Extremities exam: Positive for: full ROM, normal inspection - Back Exam Back exam: NORMAL INSPECTION - Neurological Exam Neurological exam: Alert, Oriented x3 - Psychiatric Exam Psychiatric exam: Normal Affect, Normal Mood - Skin Skin Exam: Dry, Intact, Normal Color, Warm Results - Vital Signs Recent Vital Signs: Last Vital Signs Temp 97.9 F 03/16/18 06:00 Pulse 65 03/16/18 06:00 Resp 20 03/16/18 06:00 BP 126/82 03/16/18 06:00 Pulse Ox 98 03/16/18 06:00 - Labs Result Diagrams: 03/16/18 05:40 03/16/18 05:40 Labs: Laboratory Results - last 24 hr 03/15/18 03/15/18 03/16/18 21:02 23:00 05:40 WBC RBC Hgb Hct MCV MCH MCHC RDW Plt Count MPV Gran % Lymph % (Auto) Atkinson % (Auto) Eos % (Auto) Baso % (Auto) Gran # Lymph # (Auto) Atkinson # (Auto) Eos # (Auto) Baso # (Auto) PT INR APTT pO2 47 VBG pH 7.39 VBG pCO2 41.0 VBG HCO3 24.8 VBG Total CO2 26.1 VBG O2 Sat (Calc) 83.7 H VBG Base Excess -0.2 L VBG Potassium 4.2 Sodium 140.0 Chloride 109.0 H Glucose 105 Lactate 1.0 FiO2 21.0 Potassium Carbon Dioxide Anion Gap BUN Creatinine Est GFR ( Amer) Est GFR (Non-Af Amer) Random Glucose Calcium Phosphorus Magnesium Total Bilirubin AST ALT Alkaline Phosphatase Total Protein Albumin Globulin Albumin/Globulin Ratio Venous Blood Potassium 4.2 Urine Color Light yellow Urine Appearance Clear Urine pH 7.0 Ur Specific Walton <= 1.005 Urine Protein Negative Urine Glucose (UA) Negative Urine Ketones Trace H Urine Blood Negative Urine Nitrate Negative Urine Bilirubin Negative Urine Urobilinogen 1.0 H Ur Leukocyte Esterase Negative Blood Type O POSITIVE Blood Type Confirm Antibody Screen Negative BBK History Checked No verified bt 03/16/18 03/16/18 03/16/18 05:40 05:40 05:40 WBC 4.7 RBC 3.79 Hgb 12.1 L D Hct 35.2 L MCV 92.9 MCH 31.9 MCHC 34.4 RDW 14.1 Plt Count 145 MPV 10.8 Gran % 65.6 Lymph % (Auto) 23.2 Atkinson % (Auto) 8.9 H Eos % (Auto) 2.1 Baso % (Auto) 0.2 Gran # 3.11 Lymph # (Auto) 1.1 L Atkinson # (Auto) 0.4 Eos # (Auto) 0.1 Baso # (Auto) 0.01 PT 11.8 INR 1.03 APTT 28.2 pO2 VBG pH VBG pCO2 VBG HCO3 VBG Total CO2 VBG O2 Sat (Calc) VBG Base Excess VBG Potassium Sodium 144 Chloride 110 H Glucose Lactate FiO2 Potassium 3.9 Carbon Dioxide 24 Anion Gap 14 BUN 23 H Creatinine 1.1 Est GFR ( Amer) > 60 Est GFR (Non-Af Amer) > 60 Random Glucose 90 Calcium 8.5 Phosphorus 4.3 Magnesium 1.9 Total Bilirubin 0.7 AST 17 D ALT 26 Alkaline Phosphatase 43 Total Protein 5.3 L Albumin 2.9 L Globulin 2.4 Albumin/Globulin Ratio 1.2 Venous Blood Potassium Urine Color Urine Appearance Urine pH Ur Specific Walton Urine Protein Urine Glucose (UA) Urine Ketones Urine Blood Urine Nitrate Urine Bilirubin Urine Urobilinogen Ur Leukocyte Esterase Blood Type Blood Type Confirm Antibody Screen BBK History Checked 03/16/18 06:45 WBC RBC Hgb Hct MCV MCH MCHC RDW Plt Count MPV Gran % Lymph % (Auto) Atkinson % (Auto) Eos % (Auto) Baso % (Auto) Gran # Lymph # (Auto) Atkinson # (Auto) Eos # (Auto) Baso # (Auto) PT INR APTT pO2 VBG pH VBG pCO2 VBG HCO3 VBG Total CO2 VBG O2 Sat (Calc) VBG Base Excess VBG Potassium Sodium Chloride Glucose Lactate FiO2 Potassium Carbon Dioxide Anion Gap BUN Creatinine Est GFR ( Amer) Est GFR (Non-Af Amer) Random Glucose Calcium Phosphorus Magnesium Total Bilirubin AST ALT Alkaline Phosphatase Total Protein Albumin Globulin Albumin/Globulin Ratio Venous Blood Potassium Urine Color Urine Appearance Urine pH Ur Specific Walton Urine Protein Urine Glucose (UA) Urine Ketones Urine Blood Urine Nitrate Urine Bilirubin Urine Urobilinogen Ur Leukocyte Esterase Blood Type Blood Type Confirm O POSITIVE Antibody Screen BBK History Checked Assessment & Plan - Assessment and Plan (Free Text) Assessment: This is a 72yM presenting with abdominal pain. 1. SBO 2. Diverticulosis 3. Hx of Adhesion with lysis from multiple abdominal surgeries 4. Hx of colon polyps Plan: -Continue supportive care with pain control and anti-emetics -NPO -Serial abdominal exams -IVF hydration -IV abx -Repeat CT with po contrast per surgery, will follow up with results -Monitor electrolytes and replete as needed -Follow surgical recommendations -Pt will need outpt colonoscopy once current SBO resolves -Pt may benefit from total colectomy electively due to recurrent episodes -Will continue to follow pt closely <Kimo Boyd Y - Last Filed: 03/16/18 09:03> Meds - Medications Medications: Current Medications Albuterol Sulfate (Albuterol 0.083% Inhal Susanna (2.5 Mg/3 Ml) Ud) 2.5 mg IH [id number] PRN PRN Reason: Wheezing Duloxetine HCl (Cymbalta) 30 mg PO BID JM Finasteride (Proscar) 5 mg PO DAILY JM Gabapentin (Neurontin) 900 mg PO BID JM PRN Reason: Protocol Hydromorphone HCl (Dilaudid) 0.5 mg IVP Q4H PRN PRN Reason: Pain, severe (8-10) Lactated Ringer's (Lactated Ringer's) 1,000 mls @ 115 mls/hr IV .Q8H42M [facility] Last Admin: 03/16/18 08:39 Dose: 115 mls/hr Piperacillin Sod/Tazobactam Sod (Zosyn 3.375 In Ns 100ml) 100 mls @ 200 mls/hr IVPB Q6 JM PRN Reason: Protocol Stop: 03/24/18 00:01 Last Admin: 03/16/18 05:20 Dose: 200 mls/hr Latanoprost (Xalatan Opht) 0 ml OS HS [facility] Last Admin: 03/16/18 00:15 Dose: 2.5 ml Levothyroxine Sodium (Synthroid) 100 mcg PO 0600 [facility] Last Admin: 03/16/18 05:20 Dose: 100 mcg Lisinopril (Zestril) 10 mg PO [facility] Montelukast Sodium (Singulair) 10 mg PO [facility] Last Admin: 03/16/18 00:11 Dose: 10 mg Ondansetron HCl (Zofran Inj) 4 mg IVP Q6H PRN PRN Reason: Nausea/Vomiting Pantoprazole Sodium (Protonix Inj) 40 mg IVP DAILY [facility] Pregabalin (Lyrica) 100 mg PO BID [facility] Last Admin: 03/16/18 00:11 Dose: 100 mg Trazodone HCl (Desyrel) 25 mg PO [facility] Results - Vital Signs Recent Vital Signs: Last Vital Signs Temp 97.9 F 03/16/18 06:00 Pulse 65 03/16/18 06:00 Resp 20 03/16/18 06:00 BP 126/82 03/16/18 06:00 Pulse Ox 98 03/16/18 06:00 - Labs Result Diagrams: 03/16/18 05:40 03/16/18 05:40 Labs: Laboratory Results - last 24 hr 03/15/18 03/15/18 03/16/18 21:02 23:00 05:40 WBC RBC Hgb Hct MCV MCH MCHC RDW Plt Count MPV Gran % Lymph % (Auto) Atkinson % (Auto) Eos % (Auto) Baso % (Auto) Gran # Lymph # (Auto) Atkinson # (Auto) Eos # (Auto) Baso # (Auto) PT INR APTT pO2 47 VBG pH 7.39 VBG pCO2 41.0 VBG HCO3 24.8 VBG Total CO2 26.1 VBG O2 Sat (Calc) 83.7 H VBG Base Excess -0.2 L VBG Potassium 4.2 Sodium 140.0 Chloride 109.0 H Glucose 105 Lactate 1.0 FiO2 21.0 Potassium Carbon Dioxide Anion Gap BUN Creatinine Est GFR ( Amer) Est GFR (Non-Af Amer) Random Glucose Calcium Phosphorus Magnesium Total Bilirubin AST ALT Alkaline Phosphatase Total Protein Albumin Globulin Albumin/Globulin Ratio Venous Blood Potassium 4.2 Urine Color Light yellow Urine Appearance Clear Urine pH 7.0 Ur Specific Walton <= 1.005 Urine Protein Negative Urine Glucose (UA) Negative Urine Ketones Trace H Urine Blood Negative Urine Nitrate Negative Urine Bilirubin Negative Urine Urobilinogen 1.0 H Ur Leukocyte Esterase Negative Blood Type O POSITIVE Blood Type Confirm Antibody Screen Negative BBK History Checked No verified bt 03/16/18 03/16/18 03/16/18 05:40 05:40 05:40 WBC 4.7 RBC 3.79 Hgb 12.1 L D Hct 35.2 L MCV 92.9 MCH 31.9 MCHC 34.4 RDW 14.1 Plt Count 145 MPV 10.8 Gran % 65.6 Lymph % (Auto) 23.2 Atkinson % (Auto) 8.9 H Eos % (Auto) 2.1 Baso % (Auto) 0.2 Gran # 3.11 Lymph # (Auto) 1.1 L Atkinson # (Auto) 0.4 Eos # (Auto) 0.1 Baso # (Auto) 0.01 PT 11.8 INR 1.03 APTT 28.2 pO2 VBG pH VBG pCO2 VBG HCO3 VBG Total CO2 VBG O2 Sat (Calc) VBG Base Excess VBG Potassium Sodium 144 Chloride 110 H Glucose Lactate FiO2 Potassium 3.9 Carbon Dioxide 24 Anion Gap 14 BUN 23 H Creatinine 1.1 Est GFR ( Amer) > 60 Est GFR (Non-Af Amer) > 60 Random Glucose 90 Calcium 8.5 Phosphorus 4.3 Magnesium 1.9 Total Bilirubin 0.7 AST 17 D ALT 26 Alkaline Phosphatase 43 Total Protein 5.3 L Albumin 2.9 L Globulin 2.4 Albumin/Globulin Ratio 1.2 Venous Blood Potassium Urine Color Urine Appearance Urine pH Ur Specific Walton Urine Protein Urine Glucose (UA) Urine Ketones Urine Blood Urine Nitrate Urine Bilirubin Urine Urobilinogen Ur Leukocyte Esterase Blood Type Blood Type Confirm Antibody Screen BBK History Checked 03/16/18 06:45 WBC RBC Hgb Hct MCV MCH MCHC RDW Plt Count MPV Gran % Lymph % (Auto) Atkinson % (Auto) Eos % (Auto) Baso % (Auto) Gran # Lymph # (Auto) Atkinson # (Auto) Eos # (Auto) Baso # (Auto) PT INR APTT pO2 VBG pH VBG pCO2 VBG HCO3 VBG Total CO2 VBG O2 Sat (Calc) VBG Base Excess VBG Potassium Sodium Chloride Glucose Lactate FiO2 Potassium Carbon Dioxide Anion Gap BUN Creatinine Est GFR ( Amer) Est GFR (Non-Af Amer) Random Glucose Calcium Phosphorus Magnesium Total Bilirubin AST ALT Alkaline Phosphatase Total Protein Albumin Globulin Albumin/Globulin Ratio Venous Blood Potassium Urine Color Urine Appearance Urine pH Ur Specific Walton Urine Protein Urine Glucose (UA) Urine Ketones Urine Blood Urine Nitrate Urine Bilirubin Urine Urobilinogen Ur Leukocyte Esterase Blood Type Blood Type Confirm O POSITIVE Antibody Screen BBK History Checked Attending/Attestation - Attestation I have personally seen and examined this patient.: Yes I have fully participated in the care of the patient.: Yes I have reviewed all pertinent clinical information: Yes Notes (Text): 03/16/18 08:57 I have seen and examined patient with GI fellow. Agree with above documentation with the following additions. In brief, this is a 72 year old male with history of DM, recurrent diverticulitis, neuropathy, hypothyroidism, SBO with multiple abdominal surgeries who presents to hospital with complaint of progressive abdominal pain which began 4 days ago. He was getting ready to board a cruise ship yesterday when he developed sharp, 8/10 intensity LLQ abdominal pain that was associated with nausea and non-bloody vomiting. He has had recurrent episodes of diverticulitis in the past, most recently hospitalized in [place] in July 2017. He had a soft bowel movement yesterday with minimal blood streak and is passing gas today. He had a colonoscopy earlier this year in [place] where he lives which showed diverticulosis and colon polyps as per patient. DM with associated neuropathy Hypothyroidism Abdominal pain - acute diverticulitis vs SBO - NPO - Continue with antibiotic therapy - Obtain blood cultures - Repeat CT imaging with contrast ordered by surgical team, await results and follow up recommendations - H/H stable, continue to monitor - Given recurrent episodes of diverticulitis and clinical picture again suggestive of colonic related pathology, patient would likely benefit from elective outpatient colon resection following resolution of acute symptoms. Will continue to monitor patient clinical course.
--- NOTE | 2018-03-16 09:53 | CARD ---
APPROVED REPORT Date of service: 03/15/2018 EKG Measurement Heart [id number] <Conclusion> Sinus rhythm with 1st degree AV block Otherwise normal ECG
--- NOTE | 2018-03-16 13:13 | CT ---
Date of service: 03/16/2018 PROCEDURE: CT Abdomen and Pelvis without intravenous contrast HISTORY: evaluate for obstruction COMPARISON: CT 03/15/2018 TECHNIQUE: Without contrast. Contrast dose: Radiation dose: Total exam DLP = 657 mGy-cm. This CT exam was performed using one or more of the following dose reduction techniques: Automated exposure control, adjustment of the mA and/or kV according to patient size, and/or use of iterative reconstruction technique. FINDINGS: LOWER THORAX: Unremarkable. LIVER: Unremarkable. No gross lesion or ductal dilatation. GALLBLADDER AND BILE DUCTS: Gallbladder removed. A small amount of pneumobilia. PANCREAS: Unremarkable. No gross lesion or ductal dilatation. SPLEEN: Unremarkable. ADRENALS: Unremarkable. No mass. KIDNEYS AND URETERS: Unremarkable. No hydronephrosis. No solid mass. VASCULATURE: Unremarkable. No aortic aneurysm. BOWEL: The wall thickening in the transverse colon noted on the earlier exam is no longer seen. There is some persistent mild mural thickening in the small bowel of the mid abdomen. There is no evidence of pneumatosis or free air no evidence of obstruction APPENDIX: Unremarkable. Normal appendix. PERITONEUM: Unremarkable. No free fluid. No free air. LYMPH NODES: Unremarkable. No enlarged lymph nodes. BLADDER: Unremarkable. REPRODUCTIVE: Unremarkable. BONES: No acute fracture. OTHER FINDINGS: None. IMPRESSION: The wall thickening in the transverse colon noted on the earlier exam is no longer seen. There is some persistent mild mural thickening in the small bowel of the mid abdomen. There is no evidence of pneumatosis or free air and no evidence of obstruction
--- NOTE | 2018-03-16 13:13 | CT ---
Date of service: 03/15/2018 PROCEDURE: CT Abdomen and Pelvis with contrast HISTORY: abd pain h/o of diverticulitis COMPARISON: None. TECHNIQUE: Contrast dose: 100 cc of Omni 350 Radiation dose: Total exam DLP = 621 mGy-cm. This CT exam was performed using one or more of the following dose reduction techniques: Automated exposure control, adjustment of the mA and/or kV according to patient size, and/or use of iterative reconstruction technique. FINDINGS: LOWER THORAX: Unremarkable. LIVER: Unremarkable. No gross lesion or ductal dilatation. GALLBLADDER AND BILE DUCTS: Gallbladder removed. Pneumobilia PANCREAS: Unremarkable. No gross lesion or ductal dilatation. SPLEEN: Unremarkable. ADRENALS: Unremarkable. No mass. KIDNEYS AND URETERS: Unremarkable. No hydronephrosis. No solid mass. VASCULATURE: Unremarkable. No aortic aneurysm. BOWEL: There is mural thickening in the transverse colon which could represent a localized colitis. Mildly dilated small bowel loops are seen as well as mural thickening in the small bowel. Findings could represent partial obstruction. There is severe diverticulosis of the sigmoid colon APPENDIX: Normal appendix. PERITONEUM: Unremarkable. No free fluid. No free air. LYMPH NODES: Unremarkable. No enlarged lymph nodes. BLADDER: Unremarkable. REPRODUCTIVE: Unremarkable. BONES: No acute fracture. OTHER FINDINGS: The report concurs with the preliminary [facility] report IMPRESSION: There is mural thickening in the transverse colon which could represent a localized colitis. Mildly dilated small bowel loops are seen as well as mural thickening in the small bowel. Findings could represent partial obstruction. There is severe diverticulosis of the sigmoid colon
--- NOTE | 2018-03-16 14:15 | HP ---
Copied To: Nate Coyne DO Attending MD: Nate Coyne DO HISTORY OF PRESENT ILLNESS: I was called to see him. He is from the cruise ship. He is a 72-year-old white male. He comes in from the cruise ship, sent to Emergency Room with severe abdominal pain, it started about 10 to 12 hours beforehand. He has been having multiple abdominal pains and diverticulitis history for a long time now. He sees multiple doctors in his hometown of [place]. He did have nausea and vomiting, but no chest pain, no shortness of breath, no fever. PAST MEDICAL HISTORY: Asthma, hypothyroid, diabetes, GERD, diverticulitis. He has had prostate cancer and prostate problems. He had intestinal surgery and lost 10 inches, bowel resections. He had a few surgeries in his abdomen. FAMILY HISTORY: Diabetes in his family. SOCIAL HISTORY: Never smoked. No alcohol. No drugs. ALLERGIES: SULFA. MEDICATIONS: He is on Ventolin, Celebrex, Cymbalta, Proscar, Neurontin, Amaryl, hyoscyamine, Synthroid, Singulair, Protonix, Lyrica, quinapril, Januvia and Desyrel. REVIEW OF SYSTEMS: No fevers. No acute vision or hearing changes. No sore throat. No shortness of breath or cough. No chest pain or palpitations. He is having abdominal pain, pretty bad; nausea and vomiting, he said it is somewhat worse than the last time, it usually 3 hours when persisted. No constipation or diarrhea. No problems urinating. No back pain. No headache or dizziness. No sweating. He is comfortable. No anxiety or depression. PHYSICAL EXAMINATION: VITAL SIGNS: Temperature 97.9; 69 pulse; 18 respiratory rate; 179/94 blood pressure, came down to 117/70 blood pressure; 100% O2 sat. GENERAL: He is well appearing, nontoxic, comfortable at this time. He was worse when he came in. He was also hypertensive when he came in with abdominal pain. Alert and oriented x3 now. HEENT: Head is atraumatic, normocephalic. Extraocular muscles are intact. Pupils equal and reactive to light. Conjunctivae normal. Throat is moist. HEART: Regular rate. LUNGS: Decreased breath sounds, but clear to auscultation. No wheezes, no rhonchi, no rales. ABDOMEN: Tender all over. Decreased bowel sounds. No guarding, no rebound. NEUROLOGIC: GCS is 15. Cranial nerves II through XII grossly intact. Speech is normal. SKIN: Warm and dry. No apparent rashes or ulcers. PSYCHIATRIC: Alert and oriented x3. LYMPHATICS: Thyroid midline. No palpable appreciable lymphadenopathy. LABORATORY DATA: He had multiple tests. EKG showed no ST-segment elevation or depressions. No T-wave inversions. Normal sinus rhythm. CAT scan showed extensive diverticulosis noted. There is significant wall thickening noted involving the transverse colon, which may be due to colitis or infectious. White count 5.3, 14.6 hemoglobin, 42.3 hematocrit, 164 platelets. Sodium is 143, potassium 4.1, BUN 23, creatinine 1.1, GFR is greater than 60, sugar is 124, calcium is 10, magnesium 1.9. Total bili is 0.8, AST is 25, ALT is 21, alk phos 72. Lactate dehydrogenase is 395, total creatine kinase is 75. Troponin I is 0.03, total protein is 7.8. ASSESSMENT AND PLAN: He had multiple consults. He will be seen by Surgery, GI and Infectious Disease. He is currently on albuterol, Cymbalta, Desyrel, Dilaudid, lactated Ringer's, Lyrica, Neurontin, Proscar, Protonix, Synthroid, Xalatan, Zestril, Zofran and Zosyn. We will check his labs tomorrow. Then, I will do a CAT scan of the abdomen and pelvis today to recheck it. Clinically, I think he is improved a little bit since yesterday. He is still n.p.o. We will continue aggressive treatment and care on Soren Hernandez. He is here for colitis, like diverticulitis, possible small bowel obstruction with abdominal pain with a big history of multiple surgeries and multiple diverticulitis in the past. Nate Coyne DO [facility]
--- NOTE | 2018-03-16 18:24 | CP.PCM.CON ---
History of Present Illness - History of Present Illness History of Present Illness: 72 year old male with PMH of numerous abdominal surgeries for inguinal hernia, recurrent small bowel obstruction, DM, GERD, history of diverticulitis, S/P open cholecystectomy, hypothyroidism came [place] cruise [place] complaining of worsening lower abdominal pain for the past few days while on the cruise ship. He states that he would have pain in the abdomen intermittently, would last few hours then would go away. He states that this pain is not associated with food intake, no fevers, but has nausea and episodes of vomiting, no diarrhea, able to pass gas, no chest pain, no SOB, no headache or dizziness, no dysuria. CT scan of the abdomen and pelvis is showing possible diverticulitis or small bowel obstruction. Infectious Diseases consult is requested to further evaluate and manage. Review of Systems - Review of Systems All systems: reviewed and no additional remarkable complaints except (as per HPI ) Past Patient History - Infectious Disease Hx of Infectious Diseases: None - Past Social History Smoking Status: Never Smoked - CARDIAC Hx Cardiac Disorders: Yes Hx Hypercholesterolemia: Yes (has been off meds for 3 years) Hx Hypertension: Yes (has been off meds for 3 years) - PULMONARY Hx Asthma: Yes - NEUROLOGICAL Hx Neurological Disorder: No - HEENT Hx HEENT Problems: Yes (wears glasses) Hx Cataracts: Yes (B/T with surgery) Hx Glaucoma: Yes (Left Eye) - RENAL Hx Chronic Kidney Disease: No - ENDOCRINE/METABOLIC Hx Diabetes Mellitus Type 2: Yes Hx Hypothyroidism: Yes - HEMATOLOGICAL/ONCOLOGICAL Hx Blood Disorders: No - INTEGUMENTARY Hx Dermatological Problems: No - MUSCULOSKELETAL/RHEUMATOLOGICAL Hx Musculoskeletal Disorders: Yes Hx Falls: Yes - GASTROINTESTINAL Hx Diverticulitis: Yes Hx Gastroesophageal Reflux: Yes - GENITOURINARY/GYNECOLOGICAL Hx Prostate Cancer: Yes Hx Prostate Problems: Yes - PSYCHIATRIC Hx Substance Use: No - SURGICAL HISTORY Other/Comment: intestinal sx (removed 10 inches). abdominal sx. bowel resection - ANESTHESIA Hx Anesthesia: Yes Hx Anesthesia Reactions: No Hx Malignant Hyperthermia: No Meds Allergies/Adverse Reactions: Allergies Allergy/AdvReac Type Severity Reaction Status Date / Time Sulfa (Sulfonamide Allergy RASH Verified 03/15/18 17:04 Antibiotics) morphine AdvReac Confusion Verified 03/15/18 23:05 - Medications Medications: Current Medications Albuterol Sulfate (Albuterol 0.083% Inhal Susanna (2.5 Mg/3 Ml) Ud) 2.5 mg IH [id number] PRN PRN Reason: Wheezing Duloxetine HCl (Cymbalta) 30 mg PO BID [facility] Finasteride (Proscar) 5 mg PO DAILY [facility] Gabapentin (Neurontin) 900 mg PO BID JM PRN Reason: Protocol Hydromorphone HCl (Dilaudid) 0.5 mg IVP Q4H PRN PRN Reason: Pain, severe (8-10) Lactated Ringer's (Lactated Ringer's) 1,000 mls @ 115 mls/hr IV .Q8H42M [facility] Last Admin: 03/15/18 22:40 Dose: 115 mls/hr Piperacillin Sod/Tazobactam Sod (Zosyn 3.375 In Ns 100ml) 100 mls @ 200 mls/hr IVPB Q6 JM PRN Reason: Protocol Stop: 03/24/18 00:01 Last Admin: 03/16/18 05:20 Dose: 200 mls/hr Latanoprost (Xalatan Opht) 0 ml OS HS [facility] Last Admin: 03/16/18 00:15 Dose: 2.5 ml Levothyroxine Sodium (Synthroid) 100 mcg PO 0600 [facility] Last Admin: 03/16/18 05:20 Dose: 100 mcg Lisinopril (Zestril) 10 mg PO HS [facility] Montelukast Sodium (Singulair) 10 mg PO HS [facility] Last Admin: 03/16/18 00:11 Dose: 10 mg Ondansetron HCl (Zofran Inj) 4 mg IVP Q6H PRN PRN Reason: Nausea/Vomiting Pantoprazole Sodium (Protonix Inj) 40 mg IVP DAILY [facility] Pregabalin (Lyrica) 100 mg PO BID [facility] Last Admin: 03/16/18 00:11 Dose: 100 mg Trazodone HCl (Desyrel) 25 mg PO HS [facility] Physical Exam - Constitutional Appears: Non-toxic, No Acute Distress - Head Exam Head Exam: NORMAL INSPECTION - ENT Exam ENT Exam: Mucous Membranes Moist - Neck Exam Neck exam: Negative for: Meningismus - Respiratory Exam Respiratory Exam: Decreased Breath Sounds. absent: Rales - Cardiovascular Exam Cardiovascular Exam: +S1, +S2 - GI/Abdominal Exam GI & Abdominal Exam: Soft. absent: Tenderness Results - Vital Signs Recent Vital Signs: Last Vital Signs Temp 97.9 F 03/16/18 06:00 Pulse 65 03/16/18 06:00 Resp 20 03/16/18 06:00 BP 126/82 03/16/18 06:00 Pulse Ox 98 03/16/18 06:00 - Labs Result Diagrams: 03/16/18 05:40 03/16/18 05:40 Labs: Laboratory Results - last 24 hr 03/15/18 03/15/18 03/16/18 21:02 23:00 05:40 WBC RBC Hgb Hct MCV MCH MCHC RDW Plt Count MPV Gran % Lymph % (Auto) [place] % (Auto) Eos % (Auto) Baso % (Auto) Gran # Lymph # (Auto) [place] # (Auto) Eos # (Auto) Baso # (Auto) pO2 47 VBG pH 7.39 VBG pCO2 41.0 VBG HCO3 24.8 VBG Total CO2 26.1 VBG O2 Sat (Calc) 83.7 H VBG Base Excess -0.2 L VBG Potassium 4.2 Sodium 140.0 Chloride 109.0 H Glucose 105 Lactate 1.0 FiO2 21.0 Venous Blood Potassium 4.2 Urine Color Light yellow Urine Appearance Clear Urine pH 7.0 Ur Specific [place] <= 1.005 Urine Protein Negative Urine Glucose (UA) Negative Urine Ketones Trace H Urine Blood Negative Urine Nitrate Negative Urine Bilirubin Negative Urine Urobilinogen 1.0 H Ur Leukocyte Esterase Negative BBK History Checked No verified bt 03/16/18 05:40 WBC 4.7 RBC 3.79 Hgb 12.1 L D Hct 35.2 L MCV 92.9 MCH 31.9 MCHC 34.4 RDW 14.1 Plt Count 145 MPV 10.8 Gran % 65.6 Lymph % (Auto) 23.2 [place] % (Auto) 8.9 H Eos % (Auto) 2.1 Baso % (Auto) 0.2 Gran # 3.11 Lymph # (Auto) 1.1 L [place] # (Auto) 0.4 Eos # (Auto) 0.1 Baso # (Auto) 0.01 pO2 VBG pH VBG pCO2 VBG HCO3 VBG Total CO2 VBG O2 Sat (Calc) VBG Base Excess VBG Potassium Sodium Chloride Glucose Lactate FiO2 Venous Blood Potassium Urine Color Urine Appearance Urine pH Ur Specific [place] Urine Protein Urine Glucose (UA) Urine Ketones Urine Blood Urine Nitrate Urine Bilirubin Urine Urobilinogen Ur Leukocyte Esterase BBK History Checked Assessment & Plan - Assessment and Plan (Free Text) Plan: Assessment consider acute diverticulitis or colitis or small bowel obstruction numerous abdominal surgeries for inguinal hernia recurrent small bowel obstruction DM GERD history of diverticulitis S/P open cholecystectomy hypothyroidism Plan Started on Zosyn pending blood cx; reviewed CT A/P follow up further GI and Surgery recommendations will monitor clinically
[2018-03-17] MEDS: Levothyroxine 100 MCG TAB PO SCH (05:31)
[2018-03-17] MEDS: Piperacillin/Tazobact 3.375 gm 100 ML IVPB SCH (05:31)
[2018-03-17 06:24] VITALS: O2SAT 98
[2018-03-17 06:39] LABS: HEMOGLOBIN 11.7 g/dL (14.0-18.0); MEAN CELL VOLUME 93.1 fl (80.0-105.0); MEAN CORPUSCULAR HGB CONC 33.2 g/dl (31.0-37.0); MEAN PLATELET VOLUME 10.6 fl (7.0-11.0); RBC 3.78 10^6/uL (3.5-6.1); RED CELL DISTRIBUTION WIDTH 13.9 % (11.5-14.5)
[2018-03-17 06:47] LABS: ALB/GLOB RATIO 1.2 (1.1-1.8); ALT/SGPT 29 U/L (7-56); AST/SGOT 20 U/L (17-59); BLOOD UREA NITROGEN 15 mg/dL (7-21); CALCIUM 8.4 mg/dL (8.4-10.5); GFR AFRICAN-AMERICAN > 60; GFR NON-AFRICAN AMERICAN > 60
--- NOTE | 2018-03-17 08:13 | CP.PCM.PN ---
Subjective - Date & Time of Evaluation Date of Evaluation: 03/17/18 Time of Evaluation: 08:00 - Subjective Subjective: GI Fellow PGY5 Progress Note Pt seen and evaluated at above, doing well with no more abdominal pain. Tolerating clear liquid diet. Pt received a suppository and had a small BM. ROS: A 12pt ROS was negative except as above Objective - Vital Signs/Intake and Output Vital Signs (last 24 hours): Temp Pulse Resp BP Pulse Ox 98.0 F 66 20 147/92 H 98 03/17/18 06:00 03/17/18 06:00 03/17/18 06:00 03/17/18 06:00 03/17/18 06:00 Intake and Output: 03/17/18 03/17/18 06:59 18:59 Intake Total 2160 Output Total 400 Balance 1760 - Medications Medications: Current Medications Albuterol Sulfate (Albuterol 0.083% Inhal Susanna (2.5 Mg/3 Ml) Ud) 2.5 mg IH [id number] PRN PRN Reason: Wheezing Duloxetine HCl (Cymbalta) 30 mg PO BID [facility] Last Admin: 03/16/18 17:14 Dose: 30 mg Finasteride (Proscar) 5 mg PO DAILY [facility] Last Admin: 03/16/18 12:10 Dose: 5 mg Gabapentin (Neurontin) 900 mg PO BID JM PRN Reason: Protocol Last Admin: 03/16/18 17:14 Dose: 900 mg Hydromorphone HCl (Dilaudid) 0.5 mg IVP Q4H PRN PRN Reason: Pain, severe (8-10) Lactated Ringer's (Lactated Ringer's) 1,000 mls @ 115 mls/hr IV .Q8H42M [facility] Last Admin: 03/16/18 21:30 Dose: 115 mls/hr Piperacillin Sod/Tazobactam Sod (Zosyn 3.375 In Ns 100ml) 100 mls @ 200 mls/hr IVPB Q6 JM PRN Reason: Protocol Stop: 03/24/18 00:01 Last Admin: 03/17/18 05:31 Dose: 200 mls/hr Latanoprost (Xalatan Opht) 0 ml OS HS [facility] Last Admin: 03/16/18 21:32 Dose: 2.5 ml Levothyroxine Sodium (Synthroid) 100 mcg PO 0600 [facility] Last Admin: 03/17/18 05:31 Dose: 100 mcg Lisinopril (Zestril) 10 mg PO [facility] Last Admin: 03/16/18 21:32 Dose: 10 mg Montelukast Sodium (Singulair) 10 mg PO [facility] Last Admin: 03/16/18 21:32 Dose: 10 mg Ondansetron HCl (Zofran Inj) 4 mg IVP Q6H PRN PRN Reason: Nausea/Vomiting Pantoprazole Sodium (Protonix Inj) 40 mg IVP DAILY [facility] Last Admin: 03/16/18 12:10 Dose: 40 mg Pregabalin (Lyrica) 100 mg PO BID [facility] Last Admin: 03/16/18 17:14 Dose: 100 mg Trazodone HCl (Desyrel) 25 mg PO [facility] Last Admin: 03/16/18 21:31 Dose: 25 mg - Labs Labs: 03/17/18 05:50 03/17/18 05:50 PT 11.8 SECONDS (9.4-12.5) 03/16/18 05:40 INR 1.03 03/16/18 05:40 APTT 28.2 Seconds (25.1-36.5) 03/16/18 05:40 - Constitutional Appears: Non-toxic, No Acute Distress - Head Exam Head Exam: ATRAUMATIC, NORMAL INSPECTION, NORMOCEPHALIC - Eye Exam Eye Exam: EOMI, Normal appearance, PERRL Pupil Exam: PERRL - ENT Exam ENT Exam: Mucous Membranes Moist - Neck Exam Neck Exam: Full ROM, Normal Inspection - Respiratory Exam Respiratory Exam: Clear to Ausculation Bilateral, NORMAL BREATHING PATTERN - Cardiovascular Exam Cardiovascular Exam: REGULAR RHYTHM, RRR, +S1, +S2 - GI/Abdominal Exam GI & Abdominal Exam: Soft, Normal Bowel Sounds. absent: Distended, Firm, Guarding, Tenderness, Organomegaly - Extremities Exam Extremities Exam: Full ROM, Normal Inspection - Neurological Exam Neurological Exam: Alert, Awake, Oriented x3 - Psychiatric Exam Psychiatric exam: Normal Affect, Normal Mood - Skin Skin Exam: Dry, Intact, Normal Color Assessment and Plan - Assessment and Plan (Free Text) Assessment: This is a 72yM presenting with abdominal pain. 1. SBO 2. Diverticulosis 3. Hx of Adhesion with lysis from multiple abdominal surgeries 4. Hx of colon polyps Plan: -Continue supportive care with pain control and anti-emetics -Tolerating clear liquids, okay to advance to full liquids -IVF hydration -IV abx per ID, blood cultures negative -Repeat CT with po contrast with no obstruction, no mural thickening of transverse colon, some small bowel thickening -Monitor electrolytes and replete as needed -Follow surgical recommendations -Once acute symptoms resolve, pt may benefit from total colectomy electively due to recurrent episodes -Please call with any questions or concerns
--- NOTE | 2018-03-17 08:19 | CP.PCM.PN ---
Subjective - Date & Time of Evaluation Date of Evaluation: 03/17/18 Time of Evaluation: 07:00 - Subjective Subjective: General Surgery Progress Note for Dr. Grissom Pt was seen and examined at bedside this AM resting comfortably. He has no abdominal pain this morning. Pt is passing flatus and had BM after suppository given yesterday. Tolerating clear liquid diet. No fevers/chills, constipation, diarrhea, or urinary symptoms. Objective - Vital Signs/Intake and Output Vital Signs (last 24 hours): Temp Pulse Resp BP Pulse Ox 98.0 F 66 20 147/92 H 98 03/17/18 06:00 03/17/18 06:00 03/17/18 06:00 03/17/18 06:00 03/17/18 06:00 Intake and Output: 03/17/18 03/17/18 06:59 18:59 Intake Total 2160 Output Total 400 Balance 1760 - Medications Medications: Current Medications Albuterol Sulfate (Albuterol 0.083% Inhal Susanna (2.5 Mg/3 Ml) Ud) 2.5 mg IH [id number] PRN PRN Reason: Wheezing Duloxetine HCl (Cymbalta) 30 mg PO BID [facility] Last Admin: 03/16/18 17:14 Dose: 30 mg Finasteride (Proscar) 5 mg PO DAILY [facility] Last Admin: 03/16/18 12:10 Dose: 5 mg Gabapentin (Neurontin) 900 mg PO BID JM PRN Reason: Protocol Last Admin: 03/16/18 17:14 Dose: 900 mg Hydromorphone HCl (Dilaudid) 0.5 mg IVP Q4H PRN PRN Reason: Pain, severe (8-10) Lactated Ringer's (Lactated Ringer's) 1,000 mls @ 115 mls/hr IV .Q8H42M [facility] Last Admin: 03/16/18 21:30 Dose: 115 mls/hr Piperacillin Sod/Tazobactam Sod (Zosyn 3.375 In Ns 100ml) 100 mls @ 200 mls/hr IVPB Q6 JM PRN Reason: Protocol Stop: 03/24/18 00:01 Last Admin: 03/17/18 05:31 Dose: 200 mls/hr Latanoprost (Xalatan Opht) 0 ml OS HS [facility] Last Admin: 03/16/18 21:32 Dose: 2.5 ml Levothyroxine Sodium (Synthroid) 100 mcg PO 0600 [facility] Last Admin: 03/17/18 05:31 Dose: 100 mcg Lisinopril (Zestril) 10 mg PO [facility] Last Admin: 03/16/18 21:32 Dose: 10 mg Montelukast Sodium (Singulair) 10 mg PO [facility] Last Admin: 03/16/18 21:32 Dose: 10 mg Ondansetron HCl (Zofran Inj) 4 mg IVP Q6H PRN PRN Reason: Nausea/Vomiting Pantoprazole Sodium (Protonix Inj) 40 mg IVP DAILY [facility] Last Admin: 03/16/18 12:10 Dose: 40 mg Pregabalin (Lyrica) 100 mg PO BID [facility] Last Admin: 03/16/18 17:14 Dose: 100 mg Trazodone HCl (Desyrel) 25 mg PO [facility] Last Admin: 03/16/18 21:31 Dose: 25 mg - Labs Labs: 03/17/18 05:50 03/17/18 05:50 PT 11.8 SECONDS (9.4-12.5) 03/16/18 05:40 INR 1.03 03/16/18 05:40 APTT 28.2 Seconds (25.1-36.5) 03/16/18 05:40 - Constitutional Appears: Non-toxic, No Acute Distress - Head Exam Head Exam: ATRAUMATIC, NORMAL INSPECTION, NORMOCEPHALIC - Eye Exam Eye Exam: Normal appearance - Neck Exam Neck Exam: Normal Inspection - Respiratory Exam Respiratory Exam: Clear to Ausculation Bilateral, NORMAL BREATHING PATTERN - Cardiovascular Exam Cardiovascular Exam: RRR, +S1, +S2 - GI/Abdominal Exam GI & Abdominal Exam: Soft. absent: Distended, Firm, Guarding, Rigid, Tenderness , Mass, Rebound - Extremities Exam Extremities Exam: Normal Inspection - Back Exam Back Exam: NORMAL INSPECTION - Neurological Exam Neurological Exam: Alert, Awake, Oriented x3 - Psychiatric Exam Psychiatric exam: Normal Affect, Normal Mood - Skin Skin Exam: Dry, Intact, Normal Color, Warm Assessment and Plan - Assessment and Plan (Free Text) Assessment: 72 y/o M who presents with abdominal pain, SBO, diverticulosis, hx of multiple adhesions with lysis from multiple abdominal surgeries, hx of colonic polyps. CT abd/pelvis w/ PO contrast: no acute findings Plan: -advance to soft heart healthy diet -if he tolerates diet, pt cleared for d/c from surgical perspective -supportive care with pain control, anti-emetics prn -continue monitoring BM -IV abx per ID, blood cultures negative -further recs as per Dr. Jaciel Herr, PGY-1
--- NOTE | 2018-03-17 12:01 | CP.PCM.PN ---
Subjective - Date & Time of Evaluation Date of Evaluation: 03/17/18 Time of Evaluation: 09:40 - Subjective Subjective: Patient is feeling better, no fevers, abdominal pain is much improved, able to tolerate regular diet, had good BM today, no nausea or vomiting. Objective - Vital Signs/Intake and Output Vital Signs (last 24 hours): Temp Pulse Resp BP Pulse Ox 98.0 F 66 20 147/92 H 98 03/17/18 06:00 03/17/18 06:00 03/17/18 06:00 03/17/18 06:00 03/17/18 06:00 Intake and Output: 03/17/18 03/17/18 06:59 18:59 Intake Total 2160 Output Total 400 Balance 1760 - Medications Medications: Current Medications Albuterol Sulfate (Albuterol 0.083% Inhal Susanna (2.5 Mg/3 Ml) Ud) 2.5 mg IH [id number] PRN PRN Reason: Wheezing Duloxetine HCl (Cymbalta) 30 mg PO BID [facility] Last Admin: 03/16/18 17:14 Dose: 30 mg Finasteride (Proscar) 5 mg PO DAILY [facility] Last Admin: 03/16/18 12:10 Dose: 5 mg Gabapentin (Neurontin) 900 mg PO BID JM PRN Reason: Protocol Last Admin: 03/16/18 17:14 Dose: 900 mg Hydromorphone HCl (Dilaudid) 0.5 mg IVP Q4H PRN PRN Reason: Pain, severe (8-10) Lactated Ringer's (Lactated Ringer's) 1,000 mls @ 115 mls/hr IV .Q8H42M [facility] Last Admin: 03/16/18 21:30 Dose: 115 mls/hr Piperacillin Sod/Tazobactam Sod (Zosyn 3.375 In Ns 100ml) 100 mls @ 200 mls/hr IVPB Q6 JM PRN Reason: Protocol Stop: 03/24/18 00:01 Last Admin: 03/17/18 05:31 Dose: 200 mls/hr Latanoprost (Xalatan Opht) 0 ml OS HS [facility] Last Admin: 03/16/18 21:32 Dose: 2.5 ml Levothyroxine Sodium (Synthroid) 100 mcg PO 0600 [facility] Last Admin: 03/17/18 05:31 Dose: 100 mcg Lisinopril (Zestril) 10 mg PO HS [facility] Last Admin: 03/16/18 21:32 Dose: 10 mg Montelukast Sodium (Singulair) 10 mg PO HS [facility] Last Admin: 03/16/18 21:32 Dose: 10 mg Ondansetron HCl (Zofran Inj) 4 mg IVP Q6H PRN PRN Reason: Nausea/Vomiting Pantoprazole Sodium (Protonix Inj) 40 mg IVP DAILY [facility] Last Admin: 03/16/18 12:10 Dose: 40 mg Pregabalin (Lyrica) 100 mg PO BID [facility] Last Admin: 03/16/18 17:14 Dose: 100 mg Trazodone HCl (Desyrel) 25 mg PO [facility] Last Admin: 03/16/18 21:31 Dose: 25 mg - Labs Labs: 03/17/18 05:50 03/17/18 05:50 PT 11.8 SECONDS (9.4-12.5) 03/16/18 05:40 INR 1.03 03/16/18 05:40 APTT 28.2 Seconds (25.1-36.5) 03/16/18 05:40 - Constitutional Appears: Chronically Ill - Head Exam Head Exam: NORMAL INSPECTION - ENT Exam ENT Exam: Mucous Membranes Moist - Neck Exam Neck Exam: absent: Meningismus - Respiratory Exam Respiratory Exam: absent: Rales, Rhonchi - Cardiovascular Exam Cardiovascular Exam: +S1, +S2 - GI/Abdominal Exam GI & Abdominal Exam: Soft. absent: Tenderness Assessment and Plan - Assessment and Plan (Free Text) Plan: Assessment consider acute diverticulitis or colitis or small bowel obstruction, clinically improved numerous abdominal surgeries for inguinal hernia recurrent small bowel obstruction DM GERD history of diverticulitis S/P open cholecystectomy hypothyroidism Plan on Zosyn day 2; blood cx are negative; reviewed CT A/P follow up further GI and Surgery recommendations since he is tolerating regular diet, can switch him to PO Vantin and Flagyl for another 7 days with outpatient follow up with PMD
[2018-03-17 12:03] VITALS: BP 108/70; PULSE 71; RESP 18; TEMP 97.5
--- NOTE | 2018-03-17 15:39 | DS ---
Copied To: Nate Coyne DO Attending MD: Nate Coyne DO HISTORY OF PRESENT ILLNESS: I saw him resting comfortably in bed. He slept well last night. He is hungry. His bowels are good. No more abdominal pain. MEDICATIONS: He is on albuterol, Cymbalta, Desyrel, Dilaudid, lactated Ringer's, Lyrica, Neurontin, Proscar, Protonix, Singulair, Synthroid, Dilantin, Zestril, Zofran and Zosyn. PHYSICAL EXAMINATION: VITAL SIGNS: He has a 98 temp, 66 pulse, 147/92 blood pressure. I increased his Zestril to 20 mg from 10. He has a respiratory rate of 20 and his room air oxygen is 98. HEENT: His head is atraumatic, normocephalic. HEART: Regular rate. LUNGS: Clear to auscultation. ABDOMEN: Soft, nontender. Positive bowel sounds. No guarding. No rebound. No CVA tenderness. Belly is nice and soft and normal. EXTREMITIES: No edema. LABORATORY DATA: He has a 3 white count, 11.7 hemoglobin, 35.2 hematocrit with 152 platelets. He has 143 sodium, potassium 3.9, BUN 15, creatinine 1, GFR is greater than 60, sugar is 100, calcium is 8.4, total bili is 0.4, AST is 20, ALT is 21, alk phos 42, total protein is 5.5. ASSESSMENT AND PLAN: He is being seen by Infectious Disease, Surgery, GI. He is doing now much better. I know there is a recommendation for an elective outpatient surgery if he chooses not to do it at this time. He had so many surgeries in the past. I discussed the diet versus his bad diverticulosis. I will stop him from getting diverticulitis. He also had a CAT scan, which showed improvement in the diverticulitis. I am hoping to discharge him today if it is okay with the other doctors and eats his lunch okay. Soren Hernandez with acute diverticulitis from a cruise ship. Nate Coyne DO [facility] # [id number] MTDD
[2018-03-18] MEDS ORDERED: Pantoprazole 40 mg EC Tab PO SCH (07:30)
== END 2018-03-17 12:43 | disposition home or self-care (01) | DRG 389 ==
LOC: ED 16:53 → ERH 20:39 → 2RNO 22:19
PROVIDERS: ADMIT Family Medicine; ATTEND Family Medicine
DX: K56.600 Partial intestinal obstruction, unspecified as to cause (principal); K57.32 Diverticulitis of large intestine without perforation or abscess without bleeding; K21.9 Gastro-esophageal reflux disease without esophagitis; J45.909 Unspecified asthma, uncomplicated; E03.9 Hypothyroidism, unspecified; E11.40 Type 2 diabetes mellitus with diabetic neuropathy, unspecified; Z85.46 Personal history of malignant neoplasm of prostate; Z86.010 Personal history of colon polyps; Z87.891 Personal history of nicotine dependence